=== PATIENT | male | born 1995 | race Caucasian/White ===

== ENCOUNTER 2017-05-04 21:01 | Emergency (ER) | payer OTHER ==
--- NOTE | 2017-05-04 21:41 | EDM.PDOC ---
ED HPI GENERAL MEDICAL PROBLEM - General Chief Complaint: Eye Problems Stated Complaint: PAIN LT EYE Time Seen by Provider: 05/04/17 21:36 Source of Information: Reports: Patient, Family History Limitations: Reports: No Limitations - History of Present Illness INITIAL COMMENTS - FREE TEXT/NARRATIVE: History of present illness: [22-year-old male comes in complaining of left-sided eye pain. Patient had a contact in that he fell on eyelash got into his eye, he removed the contact and proceeded to rub his eye until it felt ROM and now is red with some amount of photosensitivity.] Review of systems: As per history of present illness and below otherwise all systems reviewed and negative. Past medical history: As per history of present illness and as reviewed below otherwise noncontributory. Surgical history: As per history of present illness and as reviewed below otherwise noncontributory. Social history: No reported history of drug or alcohol abuse. Family history: As per history of present illness and as reviewed below otherwise noncontributory. Physical exam: HEENT: Atraumatic, normocephalic, pupils reactive, negative for conjunctival pallor or scleral icterus, unilateral left-sided scleral erythema, mucous membranes moist, throat clear, neck supple, nontender, trachea midline. Lungs: Clear to auscultation, breath sounds equal bilaterally, chest nontender. Heart: S1S2, regular, negative for clicks, rubs, or JVD. Abdomen: Soft, nondistended, nontender. Negative for masses or hepatosplenomegaly. Negative for costovertebral tenderness. Pelvis: Stable nontender. Genitourinary: Deferred. Rectal: Deferred. Extremities: Atraumatic, negative for cords or calf pain. Neurovascular unremarkable. Neuro: Awake, alert, oriented. Cranial nerves II through XII unremarkable. Cerebellum unremarkable. Motor and sensory unremarkable throughout. Exam nonfocal. Diagnostics: [] Therapeutics: [] Impression: [Corneal abrasion] Plan: [Eyedrops] Definitive disposition and diagnosis as appropriate pending reevaluation and review of above. left eye Pain Score (Numeric/FACES): 2 - Related Data Allergies Allergy/AdvReac Type Severity Reaction Status Date / Time No Known Allergies Allergy Verified 05/04/17 21:14 Home Meds: Home Meds . [No Known Home Meds] 08/25/15 [History] Past Medical History - Past Health History Medical/Surgical History: Denies Medical/Surgical History HEENT History: Reports: None Cardiovascular History: Reports: None Respiratory History: Reports: None Gastrointestinal History: Reports: None Genitourinary History: Reports: None Neurological History: Reports: None Psychiatric History: Reports: None Endocrine/Metabolic History: Reports: None Dermatologic History: Reports: None - Infectious Disease History Infectious Disease History: Reports: Chicken Pox - Past Surgical History Other Musculoskeletal Surgeries/Procedures:: leg surgery Social & Family History - Family History Family Medical History: Noncontributory - Tobacco Use Smoking Status *Q: Never Smoker Second Hand Smoke Exposure: No - Alcohol Use Days Per Week of Alcohol Use: 0 - Recreational Drug Use Recreational Drug Use: No ED ROS GENERAL - Review of Systems Review Of Systems: See Below (See history of present illness) ED EXAM GENERAL W FULL EYE - Physical Exam Exam: See Below (See history of present illness) Course - Vital Signs Last Recorded V/S: Last Vital Signs Temp 36.6 C 05/04/17 21:14 Pulse 82 05/04/17 21:14 Resp 18 05/04/17 21:14 BP 158/70 H 05/04/17 21:14 Pulse Ox 98 05/04/17 21:14 Departure - Departure Time of Disposition: 21:40 Disposition: Home, Self-Care 01 Condition: Good Clinical Impression: Conjunctivitis - Discharge Information Instructions: Eye Foreign Body, [id number] Forms: ED Department Discharge Additional Instructions: The following information is given to patients seen in the emergency department who are being discharged to home. This information is to outline your options for follow-up care. We provide all patients seen in our emergency department with a follow-up referral. The need for follow-up, as well as the timing and circumstances, are variable depending upon the specifics of your emergency department visit. If you don't have a primary care physician on staff, we will provide you with a referral. We always advise you to contact your personal physician following an emergency department visit to inform them of the circumstance of the visit and for follow-up with them and/or the need for any referrals to a consulting specialist. The emergency department will also refer you to a specialist when appropriate. This referral assures that you have the opportunity for follow-up care with a specialist. All of these measure are taken in an effort to provide you with optimal care, which includes your follow-up. Under all circumstances we always encourage you to contact your private physician who remains a resource for coordinating your care. When calling for follow-up care, please make the office aware that this follow-up is from your recent emergency room visit. If for any reason you are refused follow-up, please contact the [facility] Emergency Department at and asked to speak to the emergency department charge nurse. Take medication as directed Follow-up with PCP 1-2 days Return to ED as needed as discussed
[2017-05-04 22:05] VITALS: BP 130/70
== END 2017-05-04 22:05 | disposition home or self-care (01) ==
LOC: MW.ED 21:01
DX: S05.02XA Injury of conjunctiva and corneal abrasion without foreign body, left eye, initial encounter (principal); X58.XXXA Exposure to other specified factors, initial encounter
CPT/HCPCS: 99282; 99283

== ENCOUNTER 2019-01-12 12:16 | Emergency (ER) | payer BC ==
[2019-01-12] MEDS ORDERED: Ondansetron 4 MG/2 ML SDV IVPUSH ONE (12:29)
[2019-01-12] MEDS ORDERED: Sodium Chloride 0.9% 1,000 ML IV ONE (12:29)
[2019-01-12] MEDS ORDERED: Morphine 2 MG/ML Syringe IVPUSH ONE (12:54)
--- NOTE | 2019-01-12 13:14 | EDM.PDOC ---
ED HPI GENERAL MEDICAL PROBLEM - General Chief Complaint: Abdominal Pain Stated Complaint: ABDOMINAL PAIN Time Seen by Provider: 01/12/19 13:14 Source of Information: Reports: Patient - History of Present Illness INITIAL COMMENTS - FREE TEXT/NARRATIVE: HISTORY AND PHYSICAL: History of present illness: [Patient presents with right upper quadrant pain as well as right lower quadrant pain today, he cannot discern which is worse he states "a horse a piece " Notes that he had an episode of severe right upper quadrant pain 3 years ago and was seen in the ER but did not leave with a clear diagnosis, he also notes that he ate ribs last night and the pain began immediately after lasting into this morning 8 out of 10 was provided nor morphine and Toradol as well as 1 L fluid bolus and pain is 0 out of 10 at current No fever nausea vomiting diarrhea constipation chest pain shortness breath headache dizziness or palpitation no bowel or urine symptoms Review of systems: As per history of present illness and below otherwise all systems reviewed and negative. Past medical history: As per history of present illness and as reviewed below otherwise noncontributory. Surgical history: As per history of present illness and as reviewed below otherwise noncontributory. Social history: No reported history of drug or alcohol abuse. Family history: As per history of present illness and as reviewed below otherwise noncontributory. Physical exam: HEENT: Atraumatic, normocephalic, pupils reactive, negative for conjunctival pallor or scleral icterus, mucous membranes moist, throat clear, neck supple, nontender, trachea midline. Lungs: Clear to auscultation, breath sounds equal bilaterally, chest nontender. Heart: S1S2, regular, negative for clicks, rubs, or JVD. Abdomen: Soft, nondistended, nontender. Negative for masses or hepatosplenomegaly. Negative for costovertebral tenderness. Pelvis: Stable nontender. Genitourinary: Deferred. Rectal: Deferred. Extremities: Atraumatic, negative for cords or calf pain. Neurovascular unremarkable. Neuro: Awake, alert, oriented. Cranial nerves II through XII unremarkable. Cerebellum unremarkable. Motor and sensory unremarkable throughout. Exam nonfocal. Diagnostics: [CBC CMP UA lipase troponin ct abdomen pelvis with contrast Abdomen limited right upper quadrant ultrasound ] Therapeutics: [ normal saline Zofran Toradol Morphine ] [place] Cipro bland diet Impression: [ biliary colic symptoms Abdominal pain] Definitive disposition and diagnosis as appropriate pending reevaluation and review of above. Right Abdomen Pain Score (Numeric/FACES): 7 - Related Data Allergies Allergy/AdvReac Type Severity Reaction Status Date / Time No Known Allergies Allergy Verified 01/12/19 12:24 Home Meds: Home Meds . 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 Respiratory History: Reports: None Gastrointestinal History: Reports: None Genitourinary History: Reports: None Musculoskeletal History: Reports: None Neurological History: Reports: None Psychiatric History: Reports: None Endocrine/Metabolic History: Reports: None Hematologic History: Reports: None Immunologic History: Reports: None Oncologic (Cancer) History: Reports: None Dermatologic History: Reports: None - Infectious Disease History Infectious Disease History: Reports: Chicken Pox - Past Surgical History Head Surgeries/Procedures: Reports: None HEENT Surgical History: Reports: None Cardiovascular Surgical History: Reports: None Respiratory Surgical History: Reports: None GI Surgical History: Reports: None Male Surgical History: Reports: None Endocrine Surgical History: Reports: None Neurological Surgical History: Reports: None Musculoskeletal Surgical History: Reports: Other (See Below) Other Musculoskeletal Surgeries/Procedures:: leg surgery Oncologic Surgical History: Reports: None Dermatological Surgical History: Reports: None Social & Family History - Family History Family Medical History: Noncontributory - Tobacco Use Smoking Status *Q: Never Smoker Second Hand Smoke Exposure: No - Caffeine Use Caffeine Use: Reports: None - Recreational Drug Use Recreational Drug Use: No ED ROS GENERAL - Review of Systems Review Of Systems: See Below ED EXAM, GENERAL - Physical Exam Exam: See Below Course - Vital Signs Last Recorded V/S: Last Vital Signs Temp 97.2 F 01/12/19 12:19 Pulse 101 H 01/12/19 12:19 Resp 18 01/12/19 12:19 BP 116/55 L 01/12/19 12:19 Pulse Ox 99 01/12/19 12:19 - Orders/Labs/Meds Orders: Active Orders 24 hr Category Date Time Status Abdomen Ltd [US] Stat Exams 01/12/19 15:18 Ordered Labs: Laboratory Tests 01/12/19 01/12/19 01/12/19 Range/Units 12:45 12:45 15:18 WBC 7.04 (4.0-11.0) K/uL RBC 5.78 (4.50-5.90) M/uL Hgb 16.3 (13.0-17.0) g/dL Hct 47.0 (38.0-50.0) % MCV 81.3 (80.0-98.0) fL MCH 28.2 (27.0-32.0) pg MCHC 34.7 (31.0-37.0) g/dL RDW Std Deviation 38.5 (28.0-62.0) fl RDW Coeff of [place] 13 (11.0-15.0) % Plt Count 167 (150-400) K/uL MPV 10.50 (7.40-12.00) fL Neut % (Auto) 74.6 (48.0-80.0) % Lymph % (Auto) 14.6 L (16.0-40.0) % [place] % (Auto) 10.4 (0.0-15.0) % Eos % (Auto) 0.3 (0.0-7.0) % Baso % (Auto) 0.1 (0.0-1.5) % Neut # (Auto) 5.3 (1.4-5.7) K/uL Lymph # (Auto) 1.0 (0.6-2.4) K/uL [place] # (Auto) 0.7 (0.0-0.8) K/uL Eos # (Auto) 0.0 (0.0-0.7) K/uL Baso # (Auto) 0.0 (0.0-0.1) K/uL Nucleated RBC % 0.0 /100WBC Nucleated RBCs # 0 K/uL Sodium 139 (136-148) mmol/L Potassium 4.0 (3.5-5.1) mmol/L Chloride 103 (98-107) mmol/L Carbon Dioxide 25.9 (21.0-32.0) mmol/L BUN 20 H (7.0-18.0) mg/dL Creatinine 0.9 (0.8-1.3) mg/dL Est Cr Clr Drug Dosing 130.68 mL/min Estimated GFR (MDRD) > 60.0 ml/min Glucose 91 (74-106) mg/dL Calcium 9.1 (8.5-10.1) mg/dL Total Bilirubin 1.2 H (0.2-1.0) mg/dL AST 25 (15-37) IU/L ALT 60 (14-63) IU/L Alkaline Phosphatase 47 (46-116) U/L Troponin I < 0.050 (0.000-0.056) ng/mL Total Protein 8.0 (6.4-8.2) g/dL Albumin 4.2 (3.4-5.0) g/dL Globulin 3.8 (2.6-4.0) g/dL Albumin/Globulin Ratio 1.1 (0.9-1.6) Lipase 78 (73-393) U/L Urine Color YELLOW Urine Appearance CLEAR Urine pH 6.5 (5.0-8.0) Ur Specific [place] 1.010 (1.001-1.035) Urine Protein NEGATIVE (NEGATIVE) mg/dL Urine Glucose (UA) NEGATIVE (NEGATIVE) mg/dL Urine Ketones TRACE H (NEGATIVE) mg/dL Urine Occult Blood NEGATIVE (NEGATIVE) Urine Nitrite NEGATIVE (NEGATIVE) Urine Bilirubin NEGATIVE (NEGATIVE) Urine Urobilinogen 1.0 (<2.0) EU/dL Ur Leukocyte Esterase NEGATIVE (NEGATIVE) Meds: Medications Discontinued Medications Generic Name Dose Route Start Last Admin Trade Name Freq PRN Reason Stop Dose Admin Sodium Chloride 1,000 mls @ 999 mls/hr 01/12/19 12:29 01/12/19 12:47 Normal Saline IV 01/12/19 13:29 999 mls/hr STAT ONE Administration Iopamidol 100 ml 01/12/19 14:30 01/12/19 14:31 Isovue Multipack-370 (76%) IVPUSH 01/12/19 14:31 100 ml ONETIME STA Administration Ketorolac Tromethamine 30 mg 01/12/19 14:02 01/12/19 14:12 Toradol IVPUSH 01/12/19 14:03 30 mg ONETIME ONE Administration Morphine Sulfate 2 mg 01/12/19 12:54 01/12/19 12:59 Morphine IVPUSH 01/12/19 12:55 2 mg ONETIME ONE Administration Ondansetron HCl 8 mg 01/12/19 12:29 01/12/19 12:47 Zofran IVPUSH 01/12/19 12:30 8 mg ONETIME ONE Administration Departure - Departure Time of Disposition: 16:01 Disposition: Home, Self-Care 01 Condition: Good Clinical Impression: Abdominal pain Clinical Impression: (Ruled Out): Biliary colic - Discharge Information Referrals: Emeka Enriquez MD [Primary Care Provider] - Forms: ED Department Discharge Additional Instructions: Avoid greasy food bland diet as discussed Return if symptoms persist or worsen Follow-up with general surgeon, call phone number below to schedule appropriate follow-up [facility] Professional Building [address] [place] [address], [address] [place] [address] The following information is given to patients seen in the emergency department who are being discharged to home. This information is to outline your options for follow-up care. We provide all patients seen in our emergency department with a follow-up referral. The need for follow-up, as well as the timing and circumstances, are variable depending upon the specifics of your emergency department visit. If you don't have a primary care physician on staff, we will provide you with a referral. We always advise you to contact your personal physician following an emergency department visit to inform them of the circumstance of the visit and for follow-up with them and/or the need for any referrals to a consulting specialist. The emergency department will also refer you to a specialist when appropriate. This referral assures that you have the opportunity for follow-up care with a specialist. All of these measure are taken in an effort to provide you with optimal care, which includes your follow-up. Under all circumstances we always encourage you to contact your private physician who remains a resource for coordinating your care. When calling for follow-up care, please make the office aware that this follow-up is from your recent emergency room visit. If for any reason you are refused follow-up, please contact the [facility] emergency department at and asked to speak to the emergency department charge nurse. - My Orders Last 24 Hours: My Active Orders 01/12/19 15:18 Abdomen Ltd [US] Stat - Assessment/Plan Last 24 Hours: My Active Orders 01/12/19 15:18 Abdomen Ltd [US] Stat
[2019-01-12 13:59] LABS: CHLORIDE,CL 103 mmol/L (98-107); SODIUM,NA 139 mmol/L (136-148)
[2019-01-12] MEDS ORDERED: Ketorolac 30 MG/ML SDV IVPUSH ONE (14:02)
[2019-01-12] MEDS ORDERED: Iopamidol 755 MG/ML 500 ML Multipack Bottle IVPUSH STA (14:30)
--- NOTE | 2019-01-12 15:10 | CT ---
CT of the abdomen and pelvis with contrast. HISTORY: Pain TECHNIQUE: Axial CT images were obtained of the abdomen and pelvis following administration of 100 mL of Isovue-370 in the right antecubital fossa without complication. Coronal and sagittal reconstructions obtained. FINDINGS: The lung bases are clear, no pleural effusion. The liver, gallbladder, pancreas and adrenal glands appear normal. There is no bulky retroperitoneal lymphadenopathy or abdominal ascites. The kidneys enhance and function symmetrically without evidence of obstructive uropathy. The large and small bowel are normal in caliber without evidence of obstruction. No focal pericolonic inflammation or stranding. Appendix is normal. No bulky pelvic lymphadenopathy or free pelvic fluid. The urinary bladder is normal. No suspicious osseous abnormalities identified. IMPRESSION: 1. No acute findings noted within the abdomen or pelvis.
[2019-01-12 16:23] VITALS: BP 134/65
--- NOTE | 2019-01-12 16:26 | US ---
EXAMINATION: Right upper quadrant ultrasound HISTORY: Pain COMPARISON: CT dated 01/12/2019 TECHNIQUE: Grayscale and color Doppler imaging obtained of the right upper quadrant. FINDINGS: The visualized pancreas is normal. The liver is mildly increased in generalized echotexture without a focal hepatic mass. The gallbladder wall thickness is normal. No pericholecystic fluid or shadowing gallstones. Right kidney measures 12.3 cm [id number] without evidence of hydronephrosis. Common bile duct measures 5 mm. IMPRESSION: 1. Mild fatty infiltration of the liver.
== END 2019-01-12 16:23 | disposition home or self-care (01) ==
LOC: MW.ED 12:16
DX: R10.11 Right upper quadrant pain (principal)
CPT/HCPCS: 36415; 74177; 76705; 80053; 81003; 83690; 84484; 85025; 96361; 96374; 96375; 99284; J1885; J2270; J2405; J7040; Q9967; 99283

== ENCOUNTER 2019-03-03 21:26 | Emergency (ER) | payer BC ==
[2019-03-03 21:34] VITALS: BP 153/91
[2019-03-03] MEDS ORDERED: Acetaminophen/HYDROcodone 325-5 MG Tab PO ONE (21:35)
--- NOTE | 2019-03-03 21:47 | EDM.PDOC ---
ED HPI GENERAL MEDICAL PROBLEM - General Chief Complaint: Lower Extremity Injury/Pain Stated Complaint: PT FELL AND INJURED KNEE Time Seen by Provider: 03/03/19 21:33 Source of Information: Reports: Patient History Limitations: Reports: No Limitations - History of Present Illness INITIAL COMMENTS - FREE TEXT/NARRATIVE: HISTORY AND PHYSICAL: History of present illness: Patient is a 24-year-old male who presents to the emergency room with complaints of right knee pain. He states he was stepping down from a curb when he felt his leg "give out... And they heard a lot of crackling noises". He is unsure if he twisted or hyperextended the extremity. He states he is unable to bear weight without severe pain. Denies any numbness or tingling of the affected extremity. Does state that the pain radiates down into his foot and up into his hip. Patient denies any fever, chills, headache, change in vision, syncope or near syncope. Denies any chest pain, back pain, shortness of breath or cough. Denies any GI or symptoms. No previous lower extremity fractures, trauma or surgeries. Review of systems: As per history of present illness and below otherwise all systems reviewed and negative. Past medical history: As per history of present illness and as reviewed below otherwise noncontributory. Surgical history: As per history of present illness and as reviewed below otherwise noncontributory. Social history: See social history for further information Family history: As per history of present illness and as reviewed below otherwise noncontributory. Physical exam: General: Well-developed and well-nourished any 4-year-old male. Alert and oriented. Nontoxic appearing and in no acute distress. HEENT: Atraumatic, normocephalic, pupils equal and reactive bilaterally, negative for conjunctival pallor or scleral icterus, mucous membranes moist, TMs normal bilaterally, throat clear, neck supple, nontender, trachea midline. No drooling or trismus noted. No meningeal signs. No hot potato voice noted. Lungs: Clear to auscultation, breath sounds equal bilaterally, chest nontender. Heart: S1S2, regular rate and rhythm without overt murmur Abdomen: Soft, nondistended, nontender. Skin: Intact, warm, dry. No lesions or rashes noted. Extremities: Moves all extremities per self without difficulty or deficits, negative for cords or calf pain. Patient does have pain with weightbearing on the right extremity. Pain with palpation of the lateral medial ligaments of the right knee. Strong pedal and pretibial pulses. Capillary refill less than 3 seconds. Neurovascular unremarkable. Neuro: Awake, alert, oriented. Cranial nerves II through XII unremarkable. Cerebellum unremarkable. Motor and sensory unremarkable throughout. Exam nonfocal. Notes: X-ray shows no acute findings. We'll place patient in a knee immobilizer provided crutches and pain medication. We discussed the need for follow-up with the orthopedic provider. Supportive care measures were reviewed and discussed. Voices understanding and is agreeable to plan of care. Denies any further questions or concerns at this time. Diagnostics: X-ray Therapeutics: Red [place], knee immobilizer, crutches Prescription: Red Hill (#20) Impression: Right Knee Injury Plan: 1. Rest, ice, elevate the affected extremity. Please wear the knee immobilizer and crutches as directed. 2. Tylenol and/or Ibuprofen as needed for pain management. 3. Follow up with the Orthopedic provider as we discussed. Return to the ED as needed and as discussed. Definitive disposition and diagnosis as appropriate pending reevaluation and review of above. Right Leg Pain Score (Numeric/FACES): 2 - Related Data Allergies Allergy/AdvReac Type Severity Reaction Status Date / Time No Known Allergies Allergy Verified 03/03/19 21:30 Home Meds: Home Meds . 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 Respiratory History: Reports: None Gastrointestinal History: Reports: None Genitourinary History: Reports: None Musculoskeletal History: Reports: None Neurological History: Reports: None Psychiatric History: Reports: None Endocrine/Metabolic History: Reports: None Hematologic History: Reports: None Immunologic History: Reports: None Oncologic (Cancer) History: Reports: None Dermatologic History: Reports: None - Infectious Disease History Infectious Disease History: Reports: Chicken Pox - Past Surgical History Head Surgeries/Procedures: Reports: None HEENT Surgical History: Reports: None Cardiovascular Surgical History: Reports: None Respiratory Surgical History: Reports: None GI Surgical History: Reports: None Male Surgical History: Reports: None Endocrine Surgical History: Reports: None Neurological Surgical History: Reports: None Musculoskeletal Surgical History: Reports: Other (See Below) Other Musculoskeletal Surgeries/Procedures:: leg surgery Oncologic Surgical History: Reports: None Dermatological Surgical History: Reports: None Social & Family History - Family History Family Medical History: Noncontributory - Tobacco Use Smoking Status *Q: Never Smoker - Caffeine Use Caffeine Use: Reports: Coffee - Recreational Drug Use Recreational Drug Use: No Review of Systems - Review of Systems Review Of Systems: ROS reveals no pertinent complaints other than HPI. ED EXAM, GENERAL - Physical Exam Exam: See Below (See dictation) Course - Vital Signs Last Recorded V/S: Last Vital Signs Temp 97.7 F 03/03/19 21:30 Pulse 91 03/03/19 21:30 Resp 19 03/03/19 21:30 BP 153/91 H 03/03/19 21:30 Pulse Ox 99 03/03/19 21:30 - Orders/Labs/Meds Orders: Active Orders 24 hr Category Date Time Status Knee 3V Rt [CR] Stat Exams 03/03/19 21:35 Ordered DME for Discharge [COMM] Stat Oth 03/03/19 21:54 Ordered Meds: Medications Discontinued Medications Generic Name Dose Route Start Last Admin Trade Name Christianq PRN Reason Stop Dose Admin Hydrocodone Bitart/Acetaminophen 1 tab 03/03/19 21:35 [place] 325-5 Mg PO 03/03/19 21:36 ONETIME ONE Departure - Departure Time of Disposition: 21:55 Disposition: Home, Self-Care 01 Clinical Impression: Right knee injury Qualifiers: Encounter type: initial encounter Qualified Code(s): S89.91XA - Unspecified injury of right lower leg, initial encounter - Discharge Information Instructions: Knee Sprain, Adult, [id number] Referrals: PCP,None [Primary Care Provider] - Forms: ED Department Discharge Additional Instructions: The following information is given to patients seen in the emergency department who are being discharged to home. This information is to outline your options for follow-up care. We provide all patients seen in our emergency department with a follow-up referral. The need for follow-up, as well as the timing and circumstances, are variable depending upon the specifics of your emergency department visit. If you don't have a primary care physician on staff, we will provide you with a referral. We always advise you to contact your personal physician following an emergency department visit to inform them of the circumstance of the visit and for follow-up with them and/or the need for any referrals to a consulting specialist. The emergency department will also refer you to a specialist when appropriate. This referral assures that you have the opportunity for follow-up care with a specialist. All of these measure are taken in an effort to provide you with optimal care, which includes your follow-up. Under all circumstances we always encourage you to contact your private physician who remains a resource for coordinating your care. When calling for follow-up care, please make the office aware that this follow-up is from your recent emergency room visit. If for any reason you are refused follow-up, please contact the [facility] Emergency Department at and asked to speak to the emergency department charge nurse. [facility] [address] [place] [id number] [place] [address] [facility] - [facility] [address], [address] [place] [address] Plan: 1. Rest, ice, elevate the affected extremity. Please wear the knee immobilizer and crutches as directed. 2. Tylenol and/or Ibuprofen as needed for pain management. 3. Follow up with the Orthopedic provider as we discussed. Return to the ED as needed and as discussed. - My Orders Last 24 Hours: My Active Orders 03/03/19 21:35 Knee 3V Rt [CR] Stat 03/03/19 21:54 DME for Discharge [COMM] Stat - Assessment/Plan Last 24 Hours: My Active Orders 03/03/19 21:35 Knee 3V Rt [CR] Stat 03/03/19 21:54 DME for Discharge [COMM] Stat
--- NOTE | 2019-03-03 22:02 | CR ---
Indication: Fall. Unable to bear weight. Technique: Three views of the right knee were obtained. Comparison: None Findings: Mild narrowing of the medial compartment is identified. No acute fracture or subluxation is identified. Small joint effusion is identified. Impression: No acute fracture. Dictated by Melissa Stewart MD @ Mar 03 2019 9:59PM Signed by Dr. Melissa Stewart @ Mar 03 2019 10:00PM
== END 2019-03-03 22:24 | disposition home or self-care (01) ==
LOC: MW.ED 21:26
DX: S89.91XA Unspecified injury of right lower leg, initial encounter (principal); W10.1XXA Fall (on)(from) sidewalk curb, initial encounter
CPT/HCPCS: 73562-26-RT; 73562-RT; 99283-25

== ENCOUNTER 2019-05-13 04:24 | Emergency (ER) | payer BC ==
[2019-05-13] MEDS ORDERED: Morphine 2 MG/ML Syringe IVPUSH ONE (04:35)
[2019-05-13] MEDS ORDERED: Ondansetron 4 MG/2 ML SDV IVPUSH ONE (04:35)
[2019-05-13] MEDS ORDERED: Sodium Chloride 0.9% 2.5 ML Syringe FLUSH PRN (04:35)
[2019-05-13] MEDS ORDERED: Sodium Chloride 0.9% 1,000 ML IV ONE (04:35)
[2019-05-13] MEDS ORDERED: Sodium Chloride 0.9% 10 ML Syringe FLUSH PRN (04:35)
[2019-05-13] MEDS ORDERED: Ketorolac 30 MG/ML SDV IVPUSH ONE (04:40)
--- NOTE | 2019-05-13 04:40 | EDM.PDOC ---
ED HPI GENERAL MEDICAL PROBLEM - General Chief Complaint: Abdominal Pain Stated Complaint: STOMACH PAIN Time Seen by Provider: 05/13/19 04:29 - History of Present Illness INITIAL COMMENTS - FREE TEXT/NARRATIVE: HISTORY AND PHYSICAL: History of present illness: The patient is a 24-year-old male with no GI or abdominal surgical history presents with onset at about midnight of mid abdominal pain associated with 2 episodes of diarrhea, which was not black or bloody, and dry heaves with nausea. The patient underwent surgery on his right knee on Wednesday in [place] and has been on pain medication for that and says he has no ill contacts and did eat pizza last night. He says that he felt fine all day yesterday with no abdominal issues and then at midnight he started having this mid to left mid abdominal pain associated with 2 episodes of the diarrhea will call her and then the dry heaves and nausea. He did have feverish feelings but did not take his temperature. He has no chest pain or shortness of breath no urinary complaints and prior to 12 midnight had normal stool output. The patient has a history of abdominal pain in the right upper and right lower quadrant in January of this year and was seen here in emergency department and underwent CT scan of the abdomen and pelvis abdominal ultrasound and labs all of which were normal and he followed up with Dr. Alfaro in the clinic and had a nuclear medicine scan which showed a gallbladder with 42% ejection fraction but no other abnormalities. He says that he did not have any issues with pain vomiting or diarrhea until this evening. He did not take anything [id number] for pain diarrhea or vomiting. He has no urinary complaints The patient says he does have a history of kidney stones but this feels very different. Review of systems: As per history of present illness and below otherwise all systems reviewed and negative. Past medical history: As per history of present illness and as reviewed below otherwise noncontributory. Surgical history: As per history of present illness and as reviewed below otherwise noncontributory. Social history: No reported history of drug or alcohol abuse. Family history: As per history of present illness and as reviewed below otherwise noncontributory. Physical exam: General: Well-developed well-nourished overweight man who is nontoxic and somewhat anxious on my evaluation. Vital signs are noted by me HEENT: Atraumatic, normocephalic, negative for conjunctival pallor or scleral icterus, mucous membranes a little tachycardia, throat clear, neck supple, nontender, trachea midline. Lungs: Clear to auscultation, breath sounds equal bilaterally, chest nontender. Heart: S1S2, regular rhythm and subtly tachycardic rate on my evaluation but no murmurs, negative for clicks, rubs, or JVD. Abdomen: Soft, nondistended, bowel sounds are hypoactive and there is no tympany on percussion. On palpation there is some tenderness to the left of the umbilicus without rebound or guarding Negative for masses or hepatosplenomegaly. Negative for costovertebral tenderness. Pelvis: Stable nontender. Genitourinary: Deferred. Rectal: Deferred. Extremities: Atraumatic, the patient has a postop knee brace on the right side in the left side has no edema or abnormalities Neurovascular unremarkable. Neuro: Awake, alert, oriented. Cranial nerves II through XII unremarkable. Cerebellum unremarkable. Motor and sensory unremarkable throughout. Exam nonfocal. Diagnostics: CBC CMP amylase lipase UA with reflex stool for study if the patient produces Therapeutics: IV fluids Zofran and morphine Toradol, Bentyl The patient says that he is feeling better. He has not produced any stool for study nor has it produced a urine sample but his heart rate has normalized with fluids. He says that the pain waxes and wanes and I have offered him a CT scan for further evaluation and he is declining at this time and will prefer to go home. I will give him a dose of Bentyl here as well as Bentyl and Zofran for home. Impression: Abdominal pain with nausea and diarrhea Definitive disposition and diagnosis as appropriate pending reevaluation and review of above. 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 Respiratory History: Reports: None Gastrointestinal History: Reports: None Genitourinary History: Reports: None Musculoskeletal History: Reports: None Neurological History: Reports: None Psychiatric History: Reports: None Endocrine/Metabolic History: Reports: None Hematologic History: Reports: None Immunologic History: Reports: None Oncologic (Cancer) History: Reports: None Dermatologic History: Reports: None - Infectious Disease History Infectious Disease History: Reports: Chicken Pox - Past Surgical History Head Surgeries/Procedures: Reports: None HEENT Surgical History: Reports: None Cardiovascular Surgical History: Reports: None Respiratory Surgical History: Reports: None GI Surgical History: Reports: None Male Surgical History: Reports: None Endocrine Surgical History: Reports: None Neurological Surgical History: Reports: None Musculoskeletal Surgical History: Reports: Other (See Below) Other Musculoskeletal Surgeries/Procedures:: ACL surgery Oncologic Surgical History: Reports: None Dermatological Surgical History: Reports: None Social & Family History - Family History Family Medical History: Noncontributory - Tobacco Use Smoking Status *Q: Never Smoker - Caffeine Use Caffeine Use: Reports: None - Recreational Drug Use Recreational Drug Use: No ED ROS GENERAL - Review of Systems Review Of Systems: ROS reveals no pertinent complaints other than HPI. ED EXAM, GENERAL - Physical Exam Exam: See Below (See dictation) Course - Vital Signs Last Recorded V/S: Last Vital Signs Temp 38.0 C 05/13/19 04:28 Pulse 115 H 05/13/19 04:28 Resp 18 05/13/19 04:28 BP 159/72 H 05/13/19 04:28 Pulse Ox 95 05/13/19 04:28 - Orders/Labs/Meds Orders: Active Orders 24 hr Category Date Time Status CULTURE STOOL + CAMPY+SHIGATOX [RM] Stat Lab 05/13/19 04:35 Stop Req UA RFX VIKTORIA AND CULT IF INDIC [URIN] Stat Lab 05/13/19 04:35 Stop Req Dicyclomine [Bentyl] Med 05/13/19 05:31 Once 20 mg PO ONETIME ONE Sodium Chloride 0.9% [Normal Saline] 1,000 ml Med 05/13/19 04:35 Active IV STAT Sodium Chloride 0.9% [Saline Flush] Med 05/13/19 04:35 Active 10 ml FLUSH ASDIRECTED PRN Sodium Chloride 0.9% [Saline Flush] Med 05/13/19 04:35 Active 2.5 ml FLUSH ASDIRECTED PRN Saline Lock Insert [OM.PC] Stat Oth 05/13/19 04:35 Ordered Medication Orders Dicyclomine HCl (Bentyl) 20 mg PO ONETIME ONE Stop: 05/13/19 05:32 Sodium Chloride (Normal Saline) 1,000 mls @ 999 mls/hr IV STAT ONE Stop: 05/13/19 05:35 Last Admin: 05/13/19 04:42 Dose: 999 mls/hr Sodium Chloride (Saline Flush) 10 ml FLUSH ASDIRECTED PRN PRN Reason: Keep Vein Open Sodium Chloride (Saline Flush) 2.5 ml FLUSH ASDIRECTED PRN PRN Reason: Keep Vein Open Labs: Laboratory Tests 05/13/19 05/13/19 Range/Units 04:40 04:40 WBC 8.99 (4.0-11.0) K/uL RBC 4.98 (4.50-5.90) M/uL Hgb 13.8 (13.0-17.0) g/dL Hct 40.1 (38.0-50.0) % MCV 80.5 (80.0-98.0) fL MCH 27.7 (27.0-32.0) pg MCHC 34.4 (31.0-37.0) g/dL RDW Std Deviation 36.5 (28.0-62.0) fl RDW Coeff of Conchis 13 (11.0-15.0) % Plt Count 192 (150-400) K/uL MPV 10.10 (7.40-12.00) fL Neut % (Auto) 73.8 (48.0-80.0) % Lymph % (Auto) 14.7 L (16.0-40.0) % Letcher % (Auto) 9.5 (0.0-15.0) % Eos % (Auto) 1.6 (0.0-7.0) % Baso % (Auto) 0.4 (0.0-1.5) % Neut # (Auto) 6.6 H (1.4-5.7) K/uL Lymph # (Auto) 1.3 (0.6-2.4) K/uL Letcher # (Auto) 0.9 H (0.0-0.8) K/uL Eos # (Auto) 0.1 (0.0-0.7) K/uL Baso # (Auto) 0.0 (0.0-0.1) K/uL Sodium 139 (136-148) mmol/L Potassium 4.2 (3.5-5.1) mmol/L Chloride 102 (98-107) mmol/L Carbon Dioxide 27.9 (21.0-32.0) mmol/L BUN 18 (7.0-18.0) mg/dL Creatinine 0.9 (0.8-1.3) mg/dL Est Cr Clr Drug Dosing 129.55 mL/min Estimated GFR (MDRD) > 60.0 ml/min Glucose 125 H (74-106) mg/dL Calcium 9.7 (8.5-10.1) mg/dL Total Bilirubin 0.9 (0.2-1.0) mg/dL AST 24 (15-37) IU/L ALT 52 (14-63) IU/L Alkaline Phosphatase 56 (46-116) U/L Total Protein 7.6 (6.4-8.2) g/dL Albumin 3.8 (3.4-5.0) g/dL Globulin 3.8 (2.6-4.0) g/dL Albumin/Globulin Ratio 1.0 (0.9-1.6) Amylase 35 (25-115) U/L Lipase 67 L (73-393) U/L Meds: Medications Generic Name Dose Route Start Last Admin Trade Name Freq PRN Reason Stop Dose Admin Dicyclomine HCl 20 mg 05/13/19 05:31 Bentyl PO 05/13/19 05:32 ONETIME ONE Sodium Chloride 1,000 mls @ 999 mls/hr 05/13/19 04:35 05/13/19 04:42 Normal Saline IV 05/13/19 05:35 999 mls/hr STAT ONE Administration Sodium Chloride 10 ml 05/13/19 04:35 Saline Flush FLUSH ASDIRECTED PRN Keep Vein Open Sodium Chloride 2.5 ml 05/13/19 04:35 Saline Flush FLUSH ASDIRECTED PRN Keep Vein Open Discontinued Medications Generic Name Dose Route Start Last Admin Trade Name Freq PRN Reason Stop Dose Admin Ketorolac Tromethamine 30 mg 05/13/19 04:40 05/13/19 05:24 Toradol IVPUSH 05/13/19 04:41 30 mg ONETIME ONE Administration Morphine Sulfate 4 mg 05/13/19 04:35 05/13/19 04:45 Morphine IVPUSH 05/13/19 04:36 4 mg ONETIME ONE Administration Ondansetron HCl 4 mg 05/13/19 04:35 05/13/19 04:42 Zofran IVPUSH 05/13/19 04:36 4 mg ONETIME ONE Administration Departure - Departure Time of Disposition: 05:33 Disposition: Home, Self-Care 01 Condition: Good Clinical Impression: Diarrhea Qualifiers: Diarrhea type: unspecified type Qualified Code(s): R19.7 - Diarrhea, unspecified Abdominal pain Qualifiers: Abdominal location: unspecified location Qualified Code(s): R10.9 - Unspecified abdominal pain - Discharge Information Referrals: Emeka Enriquez MD [Primary Care Provider] - Forms: ED Department Discharge Additional Instructions: The following information is given to patients seen in the emergency department who are being discharged to home. This information is to outline your options for follow-up care. We provide all patients seen in our emergency department with a follow-up referral. The need for follow-up, as well as the timing and circumstances, are variable depending upon the specifics of your emergency department visit. If you don't have a primary care physician on staff, we will provide you with a referral. We always advise you to contact your personal physician following an emergency department visit to inform them of the circumstance of the visit and for follow-up with them and/or the need for any referrals to a consulting specialist. The emergency department will also refer you to a specialist when appropriate. This referral assures that you have the opportunity for followup care with a specialist. All of these measure are taken in an effort to provide you with optimal care, which includes your followup. Under all circumstances we always encourage you to contact your private physician who remains a resource for coordinating your care. When calling for followup care, please make the office aware that this follow-up is from your recent emergency room visit. If for any reason you are refused follow-up, please contact the [facility] emergency department at and ask to speak to the emergency department charge nurse. [facility] Primary care- Internal Medicine and Family [facility] [address] [place], [place] [id number] Push hydration and eat bland bites of food. Use the dicyclomine/Bentyl you have been given for cramping and pain as well as the Zofran as needed. Return to ER as needed and as discussed and please call and schedule follow-up appointment in the clinic for free evaluation and further care. - My Orders Last 24 Hours: My Active Orders 05/13/19 04:35 CULTURE STOOL + CAMPY+SHIGATOX [RM] Stat UA RFX VIKTORIA AND CULT IF INDIC [URIN] Stat Sodium Chloride 0.9% [Normal Saline] 1,000 ml IV STAT Sodium Chloride 0.9% [Saline Flush] 10 ml FLUSH ASDIRECTED PRN Sodium Chloride 0.9% [Saline Flush] 2.5 ml FLUSH ASDIRECTED PRN Saline Lock Insert [OM.PC] Stat 05/13/19 05:31 Dicyclomine [Bentyl] 20 mg PO ONETIME ONE - Assessment/Plan Last 24 Hours: My Active Orders 05/13/19 04:35 CULTURE STOOL + CAMPY+SHIGATOX [RM] Stat UA RFX VIKTORIA AND CULT IF INDIC [URIN] Stat Sodium Chloride 0.9% [Normal Saline] 1,000 ml IV STAT Sodium Chloride 0.9% [Saline Flush] 10 ml FLUSH ASDIRECTED PRN Sodium Chloride 0.9% [Saline Flush] 2.5 ml FLUSH ASDIRECTED PRN Saline Lock Insert [OM.PC] Stat 05/13/19 05:31 Dicyclomine [Bentyl] 20 mg PO ONETIME ONE
[2019-05-13 05:11] LABS: BLOOD UREA NITROGEN,BUN 18 mg/dL (7.0-18.0); CARBON DIOXIDE,CO2 27.9 mmol/L (21.0-32.0); CHLORIDE,CL 102 mmol/L (98-107); GLUCOSE RANDOM 125 mg/dL (74-106); LIPASE 67 U/L (73-393); POTASSIUM,K 4.2 mmol/L (3.5-5.1); SODIUM,NA 139 mmol/L (136-148)
[2019-05-13] MEDS ORDERED: Dicyclomine 10 MG Cap PO ONE (05:31)
[2019-05-13 07:01] VITALS: BP 145/71; PULSE 102
== END 2019-05-13 05:50 | disposition home or self-care (01) ==
LOC: MW.ED 04:24
DX: R10.9 Unspecified abdominal pain (principal); R19.7 Diarrhea, unspecified; R11.0 Nausea; Z79.82 Long term (current) use of aspirin; Z79.899 Other long term (current) drug therapy
CPT/HCPCS: 36415; 80053; 82150; 83690; 85025; 96361; 96374; 96375; 99284; A9270; J1885; J2270; J2405; J7040; 99283

== ENCOUNTER 2019-05-25 12:07 | Day surgery (SDC) | payer BC ==
[~2019-05-25 12:07] MED LIST: Lactated Ringers 1,000 ML IV SCH; Sodium Chloride 0.9% 10 ML SDV IV PRN; Sodium Chloride 0.9% 10 ML Syringe FLUSH PRN; Sodium Chloride 0.9% 2.5 ML Syringe FLUSH PRN
--- NOTE | 2019-05-25 12:36 | PCM.PREANE ---
Preanesthetic Assessment - Anesthesia/Transfusion/Family Hx Anesthesia History: Prior Anesthesia Without Reaction (knee surg 15 day ago) Family History of Anesthesia Reaction: No Transfusion History: No Prior Transfusion(s) - Review of Systems General: No Symptoms Pulmonary: No Symptoms Cardiovascular: No Symptoms Neurological: No Symptoms Other: Reports: None - Physical Assessment NPO Status Date: 05/24/19 Height: 5 ft 11 in Weight: 129.727 kg ASA Class: 1 Mental Status: Alert & Oriented x3 Airway Class: Mallampati = 2 Dentition: Reports: Normal Dentition ROM/Head Extension: Full Lungs: Clear to Auscultation, Normal Respiratory Effort Cardiovascular: Regular Rate, Regular Rhythm - Allergies Allergies/Adverse Reactions: Allergies Allergy/AdvReac Type Severity Reaction Status Date / Time No Known Allergies Allergy Verified 05/19/19 12:28 - Blood Blood Available: No - Anesthesia Plan Pre-Op Medication Ordered: None - Acknowledgements Anesthesia Type Planned: General Anesthesia Pt an Appropriate Candidate for the Planned Anesthesia: Yes Alternatives and Risks of Anesthesia Discussed w Pt/Guardian: Yes Pt/Guardian Understands and Agrees with Anesthesia Plan: Yes Additional Comments: PMH: post prandial epig pain PLAN: tiva PreAnesthesia Questionnaire - Past Health History Medical/Surgical History: Denies Medical/Surgical History HEENT History: Reports: None Cardiovascular History: Reports: None 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 Respiratory History: Reports: None Gastrointestinal History: Reports: None Genitourinary History: Reports: Renal Calculus Other Genitourinary History: hx of passing kidney stones Musculoskeletal History: Reports: None Neurological History: Reports: None Psychiatric History: Reports: None Endocrine/Metabolic History: Reports: Obesity/BMI 30+ Hematologic History: Reports: None Immunologic History: Reports: None Oncologic (Cancer) History: Reports: None Dermatologic History: Reports: None - Infectious Disease History Infectious Disease History: Reports: Chicken Pox - Past Surgical History Musculoskeletal Surgical History: Reports: Other (See Below) Other Musculoskeletal Surgeries/Procedures:: right ACL repair - SUBSTANCE USE Smoking Status *Q: Never Smoker Recreational Drug Use History: No - HOME MEDS Home Medications: Home Meds . [No Known Home Meds] 05/19/19 [History] - CURRENT (IN HOUSE) MEDS Current Meds: Current Medications Lactated Ringer's (Ringers, Lactated) 1,000 mls @ 125 mls/hr IV ASDIRECTED SINDHU Sodium Chloride (Saline Flush) 10 ml FLUSH ASDIRECTED PRN PRN Reason: Keep Vein Open Sodium Chloride (Saline Flush) 2.5 ml FLUSH ASDIRECTED PRN PRN Reason: Keep Vein Open Sodium Chloride (Saline Flush) 10 ml FLUSH ASDIRECTED PRN PRN Reason: Keep Vein Open Sodium Chloride (Saline Flush) 2.5 ml FLUSH ASDIRECTED PRN PRN Reason: Keep Vein Open Sodium Chloride (Normal Saline) 10 ml IV ASDIRECTED PRN PRN Reason: IV Use
[2019-05-25] MEDS ORDERED: fentaNYL 100 MCG/2 ML SDV ONE (12:52)
[2019-05-25] MEDS ORDERED: Propofol 200 MG/20 ML SDV ONE (12:52)
--- NOTE | 2019-05-25 13:14 | PCM.OPNOTE ---
- General Post-Op/Procedure Note Date of Surgery/Procedure: 05/25/19 Operative Procedure(s): EGD Findings: normal EGD Pre Op Diagnosis: epigastric pain Post-Op Diagnosis: normal EGD Anesthesia Technique: MAC Primary Surgeon: Lauren Alfaro Pathology: Biopsies stomach (antrum, body, and fundus) EBL in mLs: 0 Condition: Good
--- NOTE | 2019-05-25 13:44 | PCM.POSTAN ---
POST ANESTHESIA ASSESSMENT - MENTAL STATUS Mental Status: Alert, Oriented - VITAL SIGNS Vital Signs: Last Vital Signs Temp 98.1 F 05/25/19 13:18 Pulse 76 05/25/19 13:33 Resp 14 05/25/19 13:33 BP 123/56 L 05/25/19 13:33 Pulse Ox 97 05/25/19 13:33 - RESPIRATORY Respiratory Status: Respiratory Rate WNL, Airway Patent, O2 Saturation Stable - CARDIOVASCULAR CV Status: Pulse Rate WNL, Blood Pressure Stable - GASTROINTESTINAL GI Status: No Symptoms - POST OP HYDRATION Hydration Status: Adequate & Stable
--- NOTE | 2019-05-25 13:45 | PCM48HPAN ---
Post Anesthesia Note - EVALUATION WITHIN 48HRS OF ANESTHETIC Vital Signs in Normal Range: Yes Patient Participated in Evaluation: Yes Respiratory Function Stable: Yes Airway Patent: Yes Cardiovascular Function Stable: Yes Hydration Status Stable: Yes Pain Control Satisfactory: Yes Nausea and Vomiting Control Satisfactory: Yes Mental Status Recovered: Yes Vital Signs: Last Vital Signs Temp 98.1 F 05/25/19 13:18 Pulse 76 05/25/19 13:33 Resp 14 05/25/19 13:33 BP 123/56 L 05/25/19 13:33 Pulse Ox 97 05/25/19 13:33
[2019-05-25 14:35] VITALS: BP 133/73
--- NOTE | 2019-05-25 17:52 | OR ---
SURGEON: LAUREN ALFARO MD DATE OF PROCEDURE: 05/25/2019 PREOPERATIVE DIAGNOSIS: Epigastric pain. POSTOPERATIVE DIAGNOSIS: Epigastric pain. PROCEDURE PERFORMED: Diagnostic esophagogastroduodenoscopy. PRIMARY SURGEON: Lauren Alfaro MD. ANESTHESIA: MAC. INSTRUMENT USED: Olympus endoscope. EXTENT OF EXAM: To the second portion of the duodenum. PREPARATION: Good. LIMITATIONS: None. INDICATION FOR EXAMINATION: The patient is a 24-year-old male who presents with epigastric pain. The decision was made to proceed with a diagnostic EGD. I explained the procedure, expected perioperative course, and risks including bleeding, infection, or damage to the surrounding structures. The patient verbalized understanding and wishes to proceed. PROCEDURE IN DETAIL: The patient was brought to the endoscopy suite and placed in a left lateral decubitus position. A time-out was completed verifying the patient's name, age, date of , allergies, and procedure to be performed. Monitored anesthesia care was induced, and continuous oxygen was provided via nasal cannula throughout the procedure. A bite block was placed in the patient's mouth prior to inducing anesthesia. Once the patient was adequately sedated, a well lubricated endoscope was placed in the patient's mouth and advanced under direct visualization to the second portion of the duodenum. This appeared normal and a photograph was taken. Scope was then fully withdrawn while examining the color, texture, anatomy, and integrity of the mucosa of the upper GI tract. The duodenum appeared normal. The scope was brought into the stomach and a photograph was taken of the pylorus and GE junction. Both appeared anatomically normal. The gastric mucosa had no evidence of gross ulceration or inflammation. Biopsies were taken of the gastric antrum, body, and fundus, and sent for histologic review and H. pylori testing. The scope was then brought out to the distal esophagus. A photograph was taken of the Z-line. This appeared normal. The esophageal mucosa was free of pathology. The scope was removed, and the procedure was terminated. The patient tolerated the procedure well and was taken to the PACU in stable condition. ENDOSCOPIC DIAGNOSIS: Normal esophagogastroduodenoscopy. RECOMMENDATIONS: We will see the patient next week for a scheduled cholecystectomy. BRANDEE THOMAS /[id number]
== END 2019-05-25 14:00 | disposition home or self-care (01) ==
LOC: MW.SDS 12:07
PROVIDERS: ATTEND Surgery
DX: R10.13 Epigastric pain (principal); R10.11 Right upper quadrant pain; R11.2 Nausea with vomiting, unspecified; K31.89 Other diseases of stomach and duodenum
CPT/HCPCS: 43239; 88305; 88312; J2704; J3010; J7120

== ENCOUNTER → 2019-05-30 | Day surgery (SDC) | payer BC ==
[~2019-05-30] MED LIST changes: +Bupivacaine 0.5% 30 ML SDV ONE; +Desflurane 240 ML Bottle ONE; +Glycopyrrolate 0.2 MG/ML SDV ONE; +Ketorolac 30 MG/ML SDV ONE; -Lactated Ringers 1,000 ML IV SCH; +Lidocaine 2% 5 ML SDV ONE; +Midazolam 1 MG/ML 2 ML SDV ONE; +Neostigmine Methylsulfate 1 MG/ML 5 ML Syringe ONE; +Ondansetron 4 MG/2 ML SDV ONE; +Promethazine 25 MG/ML SDV ONE; +Propofol 200 MG/20 ML SDV ONE; +Rocuronium 100 MG/10 ML Syringe ONE; +Scopolamine 1.5 MG Transdermal Patch ONE; -Sodium Chloride 0.9% 10 ML SDV IV PRN; -Sodium Chloride 0.9% 10 ML Syringe FLUSH PRN; -Sodium Chloride 0.9% 2.5 ML Syringe FLUSH PRN; +Sodium Chloride 0.9% 20 ML ONE; +ceFAZolin 1 GM Vial ONE; +fentaNYL 100 MCG/2 ML SDV IVPUSH PRN; +fentaNYL 250 MCG/5 ML SDV ONE
== END ==
LOC: MW.SDS 06:43
PROVIDERS: ATTEND Surgery
DX: K81.1 Chronic cholecystitis (principal); K82.8 Other specified diseases of gallbladder; Z53.9 Procedure and treatment not carried out, unspecified reason
CPT/HCPCS: J0690; J1885; J2001; J2250; J2405; J2704; J3010; J3490